=== PATIENT | female | born 1950 | race Caucasian/White ===

== ENCOUNTER → 2017-08-22 | Outpatient (CLI) | payer MEDICARE, OTHER ==
[~2017-08-22] MED LIST: ASPI325 PO; ASPI325B; CYCL10; CYCL10 PO; ESTR.05TPB; FENO145 PO; GABA100 PO; HYDMOR2 PO; HYDPAM50; LATANOPROST2.5 ML OP; LEVSOD50 PO; LEVSOD88 PO; METO100ER; METO100ER PO; METO50ER PO; OXYACE5T PO; OXYC1TAB11; Omeprazole20 M1 PO; PAIN MED; PRAV20; PROACE100; PROG100; Percocet 10-321 EACH PO; Prinivil10 MG PO; RANI150 PO; Roxicodone5 MG PO; TIMOPTIC 0.5%1 EACH BOTHEYES; VALS80
[2017-08-22 12:55] LABS: Source, Urine Clean Catch
[2017-08-22 13:56] LABS: Appearance, Urine Clear (Clear); Bilirubin, Urine Neg (Neg); Blood, Urine 2+ (Neg); Glucose Qualitative, Urine Neg (Neg); Ketones, Urine Neg (Neg); Leukocyte Esterase, Urine 3+ (Neg); Nitrite, Urine Pos (Neg); Protein, Urine Neg (Neg); Urobilinogen, Urine NORM (Normal); pH, Urine 6.5 (5.0-8.0)
[2017-08-22 14:21] LABS: Color, Urine Yellow (P-Yellow)
[2017-08-22 14:22] LABS: White Blood Cells, Urine 25-50 /hpf (0-5)
[2017-08-22 14:23] LABS: Bacteria Mod /hpf; Squamous Epithelial Cells Few /hpf (Few)
== END | disposition home or self-care (01) ==
LOC: LAB SRC 11:45
PROVIDERS: Family Medicine
DX: N39.0 Urinary tract infection, site not specified (principal)
CPT/HCPCS: 81001; 87086

== ENCOUNTER → 2017-10-24 | Outpatient (CLI) | payer MEDICARE, OTHER ==
[2017-10-24 17:00] LABS: Source, Urine Clean Catch
[2017-10-24 17:06] LABS: Appearance, Urine Clear (Clear); Bilirubin, Urine Neg (Neg); Blood, Urine 1+ (Neg); Color, Urine Yellow (P-Yellow); Glucose Qualitative, Urine Neg (Neg); Ketones, Urine Neg (Neg); Leukocyte Esterase, Urine Neg (Neg); Nitrite, Urine Neg (Neg); Protein, Urine Neg (Neg); Urobilinogen, Urine NORM (Normal)
[2017-10-24 17:58] LABS: Bacteria Few /hpf; Squamous Epithelial Cells Few /hpf (Few)
== END | disposition home or self-care (01) ==
LOC: LAB 16:00
PROVIDERS: Family Medicine
DX: N39.0 Urinary tract infection, site not specified (principal)
CPT/HCPCS: 81001

== ENCOUNTER 2019-01-14 04:39 | Inpatient (IN) | payer OTHER ==
[~2019-01-14] VITALS: Ht 147.3 cm; Wt 60.9 kg
[~2019-01-14 04:39] MED LIST changes: -ASPI325 PO; +Aspirin EC81 MG PO; +LEVSOD100 PO; -LEVSOD88 PO
[2019-01-14 04:55] LABS: BASOPHILS ABSOLUTE AUTO 0.05 K/mm3 (0.00-0.23); BASOPHILS PERCENT AUTO 1 % (0-2); EOSINOPHILS ABSOLUTE AUTO 0.25 K/mm3 (0.00-0.68); EOSINOPHILS PERCENT AUTO 3 % (0-6); Hematocrit 40.4 % (33.0-51.0); Hemoglobin 13.1 g/dL (11.5-16.0); IMMATURE GRAN ABSOLUTE AUTO 0.04 K/mm3 (0.00-0.10); IMMATURE GRAN PERCENT AUTO 1 % (0-1); LYMPHOCYTES ABSOLUTE AUTO 4.17 K/mm3 (0.84-5.20); LYMPHOCYTES PERCENT AUTO 51 % (21-46); MONOCYTES ABSOLUTE AUTO 0.65 K/mm3 (0.16-1.47); MONOCYTES PERCENT AUTO 8 % (4-13); Mean Corpuscular HGB 30.3 pg (26.0-34.0); Mean Corpuscular HGB Conc 32.4 g/dL (31.5-36.5); Mean Corpuscular Volume 93 fL (80-100); Mean Platelet Volume 10.5 fL (9.1-12.4); NEUTROPHILS ABSOLUTE AUTO 2.98 K/mm3 (1.96-9.15); NEUTROPHILS PERCENT AUTO 37 % (41-73); Platelet Count 301 K/mm3 (150-400); RDW Coefficient Variation 14.5 % (11.7-14.2); RDW Standard Deviation 50.1 fL (35.1-46.3); Red Blood Cell Count 4.33 M/mm3 (3.80-5.20); White Blood Cell Count 8.14 K/mm3 (4.00-11.30)
[2019-01-14 05:17] LABS: Alanine Aminotransfer (ALT/SGP 21 U/L (12-78); Albumin, Blood 3.3 g/dL (3.4-5.0); Albumin/Globulin Ratio 0.9 (0.8-1.8); Anion Gap 7 mmol/L (6-16); Aspartate Aminotrans (AST/SGOT 19 U/L (12-37); Bilirubin, Total 0.2 mg/dL (0.1-1.0); Blood Urea Nitrogen 31 mg/dL (8-24); Bun/Creatinine Ratio 40.5 (12.0-20.0); CO2, Blood 28 mmol/L (21-32); Calcium, Blood 9.1 mg/dL (8.5-10.1); Chloride, Blood 105 mmol/L (98-108); Creatinine, Blood 0.77 mg/dL (0.40-1.00); Globulin, Blood 3.7 g/dL (2.2-4.0); Glomerular Filtration Rate >60 (60-); Glucose, Blood 112 mg/dL (70-99); Potassium, Blood 4.3 mmol/L (3.5-5.5); Sodium, Blood 140 mmol/L (136-145); Troponin I 0.161 ng/mL (0.000-0.040)
[2019-01-14 05:26] LABS: Alk Phos 2144 U/L (50-136)
[2019-01-14 12:12] LABS: International Normalized Ratio 0.97; Prothrombin Time Results 10.3 Sec (9.7-11.5)
== END 2019-01-16 14:21 | disposition short-term general hospital (02) | DRG 282 ==
LOC: ER 04:39 → MEDS 04:40 → PCU 01-15 07:59
PROVIDERS: Emergency Medicine; Internal Medicine; ADMIT Hospitalist
PROC: B2161ZZ Fluoroscopy of Right and Left Heart using Low Osmolar Contrast (ICD-10-PCS; principal; 2019-01-15)
PROC: B241ZZ3 Ultrasonography of Multiple Coronary Arteries, Intravascular (ICD-10-PCS; 2019-01-15)
PROC: 4A023N7 Measurement of Cardiac Sampling and Pressure, Left Heart, Percutaneous Approach (ICD-10-PCS; 2019-01-15)
PROC: B41F1ZZ Fluoroscopy of Right Lower Extremity Arteries using Low Osmolar Contrast (ICD-10-PCS; 2019-01-15)
DX: I21.4 Non-ST elevation (NSTEMI) myocardial infarction (principal); I10 Essential (primary) hypertension; E78.5 Hyperlipidemia, unspecified; G89.29 Other chronic pain; Z74.01 Bed confinement status; I25.2 Old myocardial infarction; Z95.5 Presence of coronary angioplasty implant and graft; E83.89 Other disorders of mineral metabolism; E83.39 Other disorders of phosphorus metabolism
CPT/HCPCS: 36415; 71045; 80053; 84484; 85025; 85347; 85610; 85730; 92978; 92979; 93005; 93010; 93306; 93458; 96372; 96374; 96376; 99152; 99153; 99285-25; C1753; C1760; C1769; C1887; G0378; J1644; J1650; J2250; J2405; J3010; J7030; Q9967

== ENCOUNTER 2019-01-27 19:24 | Emergency (ER) | payer OTHER ==
[~2019-01-27] VITALS: Ht 147.3 cm; Wt 52.2 kg
[2019-01-27 20:15] LABS: BASOPHILS ABSOLUTE AUTO 0.05 K/mm3 (0.00-0.23); BASOPHILS PERCENT AUTO 1 % (0-2); EOSINOPHILS ABSOLUTE AUTO 0.27 K/mm3 (0.00-0.68); EOSINOPHILS PERCENT AUTO 4 % (0-6); Hematocrit 38.2 % (33.0-51.0); Hemoglobin 12.6 g/dL (11.5-16.0); IMMATURE GRAN ABSOLUTE AUTO 0.09 K/mm3 (0.00-0.10); IMMATURE GRAN PERCENT AUTO 1 % (0-1); LYMPHOCYTES ABSOLUTE AUTO 2.79 K/mm3 (0.84-5.20); LYMPHOCYTES PERCENT AUTO 41 % (21-46); MONOCYTES ABSOLUTE AUTO 0.67 K/mm3 (0.16-1.47); MONOCYTES PERCENT AUTO 10 % (4-13); Mean Corpuscular Volume 94 fL (80-100); Mean Platelet Volume 10.1 fL (9.1-12.4); NEUTROPHILS ABSOLUTE AUTO 2.94 K/mm3 (1.96-9.15); NEUTROPHILS PERCENT AUTO 43 % (41-73); Platelet Count 417 K/mm3 (150-400); RDW Coefficient Variation 15.3 % (11.7-14.2); RDW Standard Deviation 52.4 fL (35.1-46.3); Red Blood Cell Count 4.07 M/mm3 (3.80-5.20); White Blood Cell Count 6.81 K/mm3 (4.00-11.30)
[2019-01-27 20:38] LABS: Alanine Aminotransfer (ALT/SGP 34 U/L (12-78); Albumin, Blood 3.4 g/dL (3.4-5.0); Albumin/Globulin Ratio 0.7 (0.8-1.8); Alk Phos 377 U/L (50-136); Anion Gap 8 mmol/L (6-16); Aspartate Aminotrans (AST/SGOT 29 U/L (12-37); Bilirubin, Total 0.4 mg/dL (0.1-1.0); Blood Urea Nitrogen 15 mg/dL (8-24); Bun/Creatinine Ratio 19.7 (12.0-20.0); CO2, Blood 24 mmol/L (21-32); Calcium, Blood 9.8 mg/dL (8.5-10.1); Chloride, Blood 104 mmol/L (98-108); Creatinine, Blood 0.76 mg/dL (0.40-1.00); Globulin, Blood 4.6 g/dL (2.2-4.0); Glomerular Filtration Rate >60 (60-); Glucose, Blood 130 mg/dL (70-99); Potassium, Blood 3.8 mmol/L (3.5-5.5); Sodium, Blood 136 mmol/L (136-145); Troponin I 0.036 ng/mL (0.000-0.040)
== END 2019-01-28 00:11 | disposition home or self-care (01) ==
LOC: ER 19:24
PROVIDERS: Emergency Medicine
DX: I95.9 Hypotension, unspecified (principal); Z79.899 Other long term (current) drug therapy; Z79.82 Long term (current) use of aspirin; I10 Essential (primary) hypertension; Z87.891 Personal history of nicotine dependence
CPT/HCPCS: 71045; 71260; 80053; 83605; 83880; 84484; 85025; 93005; 93010; 99285-25; Q9967

== ENCOUNTER 2019-03-26 23:11 | Emergency (ER) | payer OTHER ==
[~2019-03-26] VITALS: Ht 147.3 cm; Wt 49.9 kg
[2019-03-27 00:14] LABS: BASOPHILS ABSOLUTE AUTO 0.03 K/mm3 (0.00-0.23); BASOPHILS PERCENT AUTO 0 % (0-2); EOSINOPHILS ABSOLUTE AUTO 0.31 K/mm3 (0.00-0.68); EOSINOPHILS PERCENT AUTO 3 % (0-6); Hematocrit 40.6 % (33.0-51.0); Hemoglobin 13.2 g/dL (11.5-16.0); IMMATURE GRAN ABSOLUTE AUTO 0.03 K/mm3 (0.00-0.10); IMMATURE GRAN PERCENT AUTO 0 % (0-1); LYMPHOCYTES ABSOLUTE AUTO 3.68 K/mm3 (0.84-5.20); LYMPHOCYTES PERCENT AUTO 41 % (21-46); MONOCYTES ABSOLUTE AUTO 0.83 K/mm3 (0.16-1.47); MONOCYTES PERCENT AUTO 9 % (4-13); Mean Corpuscular HGB 29.3 pg (26.0-34.0); Mean Corpuscular HGB Conc 32.5 g/dL (31.5-36.5); Mean Corpuscular Volume 90 fL (80-100); Mean Platelet Volume 10.3 fL (9.1-12.4); NEUTROPHILS ABSOLUTE AUTO 4.13 K/mm3 (1.96-9.15); NEUTROPHILS PERCENT AUTO 46 % (41-73); Platelet Count 307 K/mm3 (150-400); RDW Coefficient Variation 13.5 % (11.7-14.2); RDW Standard Deviation 45.1 fL (35.1-46.3); Red Blood Cell Count 4.51 M/mm3 (3.80-5.20); White Blood Cell Count 9.01 K/mm3 (4.00-11.30)
[2019-03-27 00:37] LABS: Alanine Aminotransfer (ALT/SGP 27 U/L (12-78); Albumin, Blood 3.3 g/dL (3.4-5.0); Albumin/Globulin Ratio 0.8 (0.8-1.8); Anion Gap 7 mmol/L (6-16); Aspartate Aminotrans (AST/SGOT 22 U/L (12-37); Bilirubin, Total 0.2 mg/dL (0.1-1.0); Blood Urea Nitrogen 20 mg/dL (8-24); Bun/Creatinine Ratio 35.6 (12.0-20.0); CO2, Blood 25 mmol/L (21-32); Calcium, Blood 9.2 mg/dL (8.5-10.1); Chloride, Blood 106 mmol/L (98-108); Creatinine, Blood 0.56 mg/dL (0.40-1.00); Globulin, Blood 4.1 g/dL (2.2-4.0); Glomerular Filtration Rate >60 (60-); Glucose, Blood 109 mg/dL (70-99); Potassium, Blood 3.9 mmol/L (3.5-5.5); Sodium, Blood 138 mmol/L (136-145); Total Protein, Blood 7.4 g/dL (6.4-8.2); Troponin I <0.015 ng/mL (0.000-0.040)
[2019-03-27 00:46] LABS: Alk Phos 2170 U/L (50-136)
== END 2019-03-27 01:31 | disposition home or self-care (01) ==
LOC: ER 23:11
PROVIDERS: Emergency Medicine
DX: R06.02 Shortness of breath (principal); Z79.899 Other long term (current) drug therapy; Z79.82 Long term (current) use of aspirin; Z79.891 Long term (current) use of opiate analgesic; I10 Essential (primary) hypertension; E03.9 Hypothyroidism, unspecified; Z87.891 Personal history of nicotine dependence
CPT/HCPCS: 36415; 71046; 80053; 84484; 85025; 93005; 93010; 99285-25

== ENCOUNTER 2019-03-30 17:08 | Inpatient (IN) | payer OTHER ==
[~2019-03-30] VITALS: Ht 147.3 cm; Wt 84.3 kg
[2019-03-30] MEDS ORDERED: OXYC1TAB11 PO (21:06)
[2019-03-30] MEDS ORDERED: CLOP75 PO (21:07)
[2019-03-30] MEDS ORDERED: NITR.4SL SL (21:07)
[2019-03-30] MEDS ORDERED: ATOR40TA PO (21:07)
[2019-03-30] MEDS ORDERED: [UNRECOGNIZED DRUG - OTHER] SC (21:08)
[2019-03-30] MEDS ORDERED: [UNRECOGNIZED DRUG - OTHER] SC (21:09)
[2019-03-30 21:49] LABS: BASOPHILS ABSOLUTE AUTO 0.04 K/mm3 (0.00-0.23); BASOPHILS PERCENT AUTO 0 % (0-2); EOSINOPHILS ABSOLUTE AUTO 0.05 K/mm3 (0.00-0.68); EOSINOPHILS PERCENT AUTO 0 % (0-6); Hematocrit 37.1 % (33.0-51.0); IMMATURE GRAN ABSOLUTE AUTO 0.07 K/mm3 (0.00-0.10); IMMATURE GRAN PERCENT AUTO 1 % (0-1); LYMPHOCYTES ABSOLUTE AUTO 2.49 K/mm3 (0.84-5.20); LYMPHOCYTES PERCENT AUTO 16 % (21-46); MONOCYTES ABSOLUTE AUTO 0.94 K/mm3 (0.16-1.47); MONOCYTES PERCENT AUTO 6 % (4-13); Mean Corpuscular HGB 29.6 pg (26.0-34.0); Mean Corpuscular HGB Conc 32.3 g/dL (31.5-36.5); Mean Corpuscular Volume 91 fL (80-100); Mean Platelet Volume 10.5 fL (9.1-12.4); NEUTROPHILS ABSOLUTE AUTO 11.58 K/mm3 (1.96-9.15); NEUTROPHILS PERCENT AUTO 76 % (41-73); Platelet Count 289 K/mm3 (150-400); RDW Coefficient Variation 13.4 % (11.7-14.2); RDW Standard Deviation 46.2 fL (35.1-46.3); Red Blood Cell Count 4.06 M/mm3 (3.80-5.20); White Blood Cell Count 15.17 K/mm3 (4.00-11.30)
[2019-03-30 22:10] LABS: Alanine Aminotransfer (ALT/SGP 26 U/L (12-78); Albumin, Blood 3.3 g/dL (3.4-5.0); Albumin/Globulin Ratio 0.9 (0.8-1.8); Anion Gap 10 mmol/L (6-16); Aspartate Aminotrans (AST/SGOT 25 U/L (12-37); Bilirubin, Total 0.3 mg/dL (0.1-1.0); Blood Urea Nitrogen 18 mg/dL (8-24); Bun/Creatinine Ratio 40.9 (12.0-20.0); CO2, Blood 26 mmol/L (21-32); Calcium, Blood 8.7 mg/dL (8.5-10.1); Chloride, Blood 101 mmol/L (98-108); Creatinine, Blood 0.44 mg/dL (0.40-1.00); Globulin, Blood 3.6 g/dL (2.2-4.0); Glomerular Filtration Rate >60 (60-); Glucose, Blood 126 mg/dL (70-99); Magnesium, Blood 1.8 mg/dL (1.6-2.4); Potassium, Blood 3.9 mmol/L (3.5-5.5); Sodium, Blood 137 mmol/L (136-145); Total Protein, Blood 6.9 g/dL (6.4-8.2)
[2019-03-30 22:17] LABS: Thyroid Stimulating Hormone 0.051 uIU/mL (0.360-4.800)
[2019-03-30 22:20] LABS: Alk Phos 2025 U/L (50-136)
--- NOTE | 2019-03-31 01:23 | NUR ---
STRAIGHT CATH PER ORDERS TO OBTAIN UA. 350cc OUT. ATTENDS CHANGED AT THIS TIME. PT DENIES FURTHER NEEDS. CALL LIGHT IN REACH.
[2019-03-31 01:24] LABS: Source, Urine Catheter
[2019-03-31 01:27] LABS: Bilirubin, Urine Neg (Neg); Blood, Urine 3+ (Neg); Glucose Qualitative, Urine Neg (Neg); Ketones, Urine Neg (Neg); Leukocyte Esterase, Urine 3+ (Neg); Nitrite, Urine Neg (Neg); Protein, Urine 2+ (Neg); Specific Gravity, Urine 1.015 (1.003-1.022); Urobilinogen, Urine NORM (Normal)
[2019-03-31 01:34] LABS: Appearance, Urine Hazy (Clear); Color, Urine Yellow (P-Yellow)
[2019-03-31 01:35] LABS: Bacteria Mod /hpf; Hyaline Casts 0-2 /lpf (0-2); Red Blood Cells, Urine 0-2 /hpf (0-2); Squamous Epithelial Cells Rare /hpf (Few); White Blood Cells, Urine TNTC /hpf (0-5)
[2019-03-31 02:31] LABS: BASOPHILS ABSOLUTE AUTO 0.04 K/mm3 (0.00-0.23); BASOPHILS PERCENT AUTO 0 % (0-2); EOSINOPHILS ABSOLUTE AUTO 0.09 K/mm3 (0.00-0.68); EOSINOPHILS PERCENT AUTO 1 % (0-6); Hematocrit 33.6 % (33.0-51.0); IMMATURE GRAN ABSOLUTE AUTO 0.08 K/mm3 (0.00-0.10); IMMATURE GRAN PERCENT AUTO 1 % (0-1); LYMPHOCYTES ABSOLUTE AUTO 3.36 K/mm3 (0.84-5.20); LYMPHOCYTES PERCENT AUTO 26 % (21-46); MONOCYTES ABSOLUTE AUTO 1.01 K/mm3 (0.16-1.47); MONOCYTES PERCENT AUTO 8 % (4-13); Mean Corpuscular HGB 29.7 pg (26.0-34.0); Mean Corpuscular HGB Conc 32.7 g/dL (31.5-36.5); Mean Corpuscular Volume 91 fL (80-100); Mean Platelet Volume 10.2 fL (9.1-12.4); NEUTROPHILS ABSOLUTE AUTO 8.18 K/mm3 (1.96-9.15); NEUTROPHILS PERCENT AUTO 64 % (41-73); Platelet Count 259 K/mm3 (150-400); RDW Coefficient Variation 13.4 % (11.7-14.2); RDW Standard Deviation 45.5 fL (35.1-46.3); White Blood Cell Count 12.76 K/mm3 (4.00-11.30)
[2019-03-31 02:48] LABS: Anion Gap 9 mmol/L (6-16); Blood Urea Nitrogen 17 mg/dL (8-24); CO2, Blood 26 mmol/L (21-32); Calcium, Blood 8.7 mg/dL (8.5-10.1); Chloride, Blood 100 mmol/L (98-108); Creatinine, Blood 0.41 mg/dL (0.40-1.00); Glomerular Filtration Rate >60 (60-); Glucose, Blood 115 mg/dL (70-99); Potassium, Blood 3.8 mmol/L (3.5-5.5); Sodium, Blood 135 mmol/L (136-145)
--- NOTE | 2019-03-31 05:10 | NUR ---
SHIFT SUMMARY PT NEW ADMIT THIS SHIFT. AAOX4. NPO THIS AM FOR ORTHOPEDIC CONSULT. DISCOMFORT R/T RIGHT HUMERUS FX CONTROLLED WITH 0.5MG IV DILAUDID X1 THIS SHIFT. NO NAUSEA/EMESIS. PELON WRAP WITH SPLINT TO RUE C/D/I. PULSES PALPABLE, DENIES N/T, BRISK CAP REFILL. 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 PT INCONTINENT IN ATTENDS. PT ORIENTED TO CALL LIGHT + USE. RESTING AT THIS TIME WITH CALL LIGHT IN REACH.
--- NOTE | 2019-03-31 12:11 | NUR ---
PT CONCERNS PT REPORTS HAVING CONCERNS THAT SHE IS NOT A SURGICAL CANDIDATE PER DR. ACOSTA. PT AND FAMILY ARE REQUESTING THAT DR. ACOSTA COME TALK WITH THEM AGAIN. THEY ARE EXPRESSING THAT THEY WOULD LIKE A SECOND OPINION OR TRANSFERRED TO [facility]. FAMILY IS ALSO CONCERNED THAT THEY WILL BE UNABLE TO CARE FOR THE PATIENT AT HOME. DR. ACOSTA NOTIFIED THAT FAMILY IS IN THE PATIENT'S ROOM AND WAITING TO TALK TO HER. WILL CONTINUE TO MONITOR.
--- NOTE | 2019-03-31 16:04 | NUR ---
PT AND FAMILY ARE ANXIOUS ABOUT PT'S PLAN OF CARE. DR. ACOSTA DISCUSSED CURRENT TREATMENT AND AGREED TO GET A SECOND OPINION FROM [facility]. WILL CONTINUE TO REASSURE/EDUCATE PT AND FAMILY ABOUT OPTIONS NEEDED. ENCOURAGED PT'S SON(CAREGIVER), TO BE AVALIABLE TO WORK WITH PHYSICAL THERAPY SO THAT THEY CAN COME UP WITH A METHOD TO TRANSFER PT FROM BED TO WHEELCHAIR. PT'S SON AGREED. WILL CONTINUE TO MONITOR.
--- NOTE | 2019-03-31 18:30 | NUR ---
SHIFT SUMMARY PAIN HAS BEEN MANAGED WITH PO PAIN MEDICATION THIS SHIFT. PT HAS BEEN ABLE TO REPOSITION IN BED WITH ASSISTANCE. SHE WAS UNABLE TO SIT AT THE EDGE OF THE BED OR TRANSFER R/T PAIN. FAMILY AND PT HAVE REMAINED CONCERNED ABOUT HOME CARE IF PT DISCHARGES. PT REQUESTED TRANFER TO [facility]; DR. ACOSTA IS AWARE. WILL CONTINUE TO MONITOR PATIENT UNTIL REPORT TO ONCOMING RN.
[2019-04-01 03:39] LABS: BASOPHILS ABSOLUTE AUTO 0.02 K/mm3 (0.00-0.23); BASOPHILS PERCENT AUTO 0 % (0-2); EOSINOPHILS ABSOLUTE AUTO 0.35 K/mm3 (0.00-0.68); EOSINOPHILS PERCENT AUTO 5 % (0-6); Hematocrit 25.9 % (33.0-51.0); Hemoglobin 8.3 g/dL (11.5-16.0); IMMATURE GRAN ABSOLUTE AUTO 0.03 K/mm3 (0.00-0.10); IMMATURE GRAN PERCENT AUTO 0 % (0-1); LYMPHOCYTES ABSOLUTE AUTO 3.39 K/mm3 (0.84-5.20); LYMPHOCYTES PERCENT AUTO 45 % (21-46); MONOCYTES PERCENT AUTO 11 % (4-13); Mean Corpuscular Volume 91 fL (80-100); Mean Platelet Volume 10.2 fL (9.1-12.4); NEUTROPHILS ABSOLUTE AUTO 2.93 K/mm3 (1.96-9.15); NEUTROPHILS PERCENT AUTO 39 % (41-73); Platelet Count 205 K/mm3 (150-400); RDW Coefficient Variation 13.6 % (11.7-14.2); RDW Standard Deviation 45.1 fL (35.1-46.3); Red Blood Cell Count 2.86 M/mm3 (3.80-5.20); White Blood Cell Count 7.52 K/mm3 (4.00-11.30)
[2019-04-01 04:03] LABS: Anion Gap 6 mmol/L (6-16); Blood Urea Nitrogen 14 mg/dL (8-24); Bun/Creatinine Ratio 29.8 (12.0-20.0); CO2, Blood 25 mmol/L (21-32); Calcium, Blood 7.9 mg/dL (8.5-10.1); Chloride, Blood 114 mmol/L (98-108); Creatinine, Blood 0.47 mg/dL (0.40-1.00); Glomerular Filtration Rate >60 (60-); Glucose, Blood 99 mg/dL (70-99); Potassium, Blood 3.9 mmol/L (3.5-5.5)
[2019-04-01 04:06] LABS: Sodium, Blood 145 mmol/L (136-145)
--- NOTE | 2019-04-01 06:43 | NUR ---
SUMMARY: NON SX RIGHT ARM FX FOLLOWED BY HOSPITALIST AND DR. ACOSTA. VSS, AFEBRILE, INCONTINENT 2 TIMES AND USING BEDPAN WITH 2 ASSIST TO REPOSITION IN BED. PAIN WELL CONTROLLED WITH 1 TAB PERCOCET Q4 HOURS AND 0.5MF IV DILAUDID X2 THIS SHIFT. SON BROUGHT HOME MED AND SQ ADMINISTERED AT BEDSIDE. AWAIT DR. ACOSTA F/U REGARDING [facility] TRANSFER OF CARE FOR NON SURGICAL FX.
--- NOTE | 2019-04-01 16:05 | NUR ---
SHIFT SUMMARY PT IN FOR R ARM FX. AAOX4, VSS. RECCOMENDED NO SURGICAL TREATMENT AT THIS TIME. ORDER FOR BORJAS BRACE FROM DR. ACOSTA, AWAITING FITTING. PT IN BED WITH SLING ON ARM FOR SUPPORT. PT STATES SOME RELIEF. NEUROMUSCULAR CHECKS GOOD PATIENT HAS MOVEMENT AND NO NUMBNESS/TINGLING REPORTED IN EFFECTED EXTREMITY. MEDICATED FOR PAIN PER EMAR DILAUDID 0.5 X 3 AND OXYCODONE 10MG X2. PT HAS BEEN STABLE AT PAIN RATED 8/10. PT/OT WORKED WITH PATIENT TO CHAIR VIA SLIDEBOARD WITH SON. PLAN IS TO DISCHARGE HOME WITH HOMEHEALTH ONCE PAIN MANAGED AND SAFE DISCHARGE PLANNING WITH SON.
--- NOTE | 2019-04-01 16:33 | NUR ---
Met with patient to review her needs and symptoms. Pt states more recent headaches, her pain is usually around an 8/10 she states it feels like a deep ache in the bone or a tooth ache. she denies muscle spasms or weakness. no ringining in her ears or dizziness, she has chronic mild nausea. denies constipation or loose stools. Sleep is difficult she can fall asleep but it hard at times to sleep well or stay asleep. pt has a binder with all the history of her care she has recieved most of it at a [facility] in [place]. She has some a will, POA and advance directive.will ask son to bring in AD. Pt is expressing significant stress and grief and her right arm being splinted. She has been slowly looing function over many years. She fears loosing function of her right arm. Pt crying she will not be able to write and cant do crafts with her grandchildren. This is a great loss. She expresses stress at having had so much medical care and many doctors. She feels the experimenal drug trial is helping. She states the cdoctor she had at [facility] that was a great loss. She feel her best choice is a new ortho doctor that knows her disease. She states her son take great care of her but getting into a care and moving outside of the home is very very difficult. She has seen a pain specialist and had a stimulator and fentanyl patch. She is not open to any new medications. We reviewed non pharmacological care. She is of [employer] [place] and feels that her thought process in not right when she has a break and is trying to work on improving thought. We reviewed diversion she does not have a tablet of phone. Gave her some talk text strategies that could maintain some of her function and diversion. She wanted lavender and spearmint chapstick for nausea and provided her with number to our office for follow up assistance. She would like to see if her insurance would pay for gurney transport to [facility] when she goes for an appointment. We reviewed inpatient versus outpatient care. We reviewed infections risks and care needs and using heat and ice. will follow up with patient.
--- NOTE | 2019-04-01 18:07 | NUR ---
BRACE FITTING AT 1730. PATIENT PREMEDICATED FOR PAIN. TOLERATING WELL.
[2019-04-03 06:54] LABS: BASOPHILS ABSOLUTE AUTO 0.04 K/mm3 (0.00-0.23); BASOPHILS PERCENT AUTO 1 % (0-2); EOSINOPHILS ABSOLUTE AUTO 0.52 K/mm3 (0.00-0.68); EOSINOPHILS PERCENT AUTO 7 % (0-6); Hematocrit 27.2 % (33.0-51.0); Hemoglobin 8.7 g/dL (11.5-16.0); IMMATURE GRAN ABSOLUTE AUTO 0.03 K/mm3 (0.00-0.10); IMMATURE GRAN PERCENT AUTO 0 % (0-1); LYMPHOCYTES PERCENT AUTO 43 % (21-46); MONOCYTES ABSOLUTE AUTO 0.54 K/mm3 (0.16-1.47); MONOCYTES PERCENT AUTO 7 % (4-13); Mean Corpuscular HGB 29.1 pg (26.0-34.0); Mean Corpuscular Volume 91 fL (80-100); Mean Platelet Volume 10.6 fL (9.1-12.4); NEUTROPHILS ABSOLUTE AUTO 3.04 K/mm3 (1.96-9.15); NEUTROPHILS PERCENT AUTO 42 % (41-73); Platelet Count 229 K/mm3 (150-400); RDW Coefficient Variation 13.7 % (11.7-14.2); RDW Standard Deviation 45.4 fL (35.1-46.3); Red Blood Cell Count 2.99 M/mm3 (3.80-5.20); White Blood Cell Count 7.27 K/mm3 (4.00-11.30)
[2019-04-03 07:07] LABS: Anion Gap 6 mmol/L (6-16); Blood Urea Nitrogen 11 mg/dL (8-24); Bun/Creatinine Ratio 23.3 (12.0-20.0); CO2, Blood 29 mmol/L (21-32); Calcium, Blood 8.5 mg/dL (8.5-10.1); Chloride, Blood 108 mmol/L (98-108); Creatinine, Blood 0.47 mg/dL (0.40-1.00); Glomerular Filtration Rate >60 (60-); Glucose, Blood 91 mg/dL (70-99); Potassium, Blood 3.9 mmol/L (3.5-5.5); Sodium, Blood 143 mmol/L (136-145)
--- NOTE | 2019-04-03 09:46 | NUR ---
PATIENT ADVOCATE IN ROOM TALKING WITH PT PER PT REQ.
--- NOTE | 2019-04-03 11:46 | NUR ---
THUY FROM FIBERGLASS TUBE MOLDER IN ROOM.
--- NOTE | 2019-04-03 13:34 | NUR ---
DISCUSSED PT'S STATUS WITH DR MACIEL EARLIER TODAY. DISCUSSED PT'S STATUS WITH DR SUSANA ACOSTA.
--- NOTE | 2019-04-03 15:42 | NUR ---
SHIFT SUMMARY PT A&OX4, VSS, RUE FX IN BRACE & SLING, ELEVATED ON PILLOW, DENIES N&T, WIGGLES FINGERS, CAP REFILL WNL. PAIN MANAGED WITH 10 MG PERC X2 AND 0.5 DIL X2. MARLYN PO, DENIES N&V, NEEDS MEAL ASSISTANCE. VOIDING IN BEDPAN/INCONTINENT IN ATTENDS. BEDREST. WORKED WITH OT, WORKED WITH PT WITH SON BEDSIDE. WCTM & TX PER EMAR UNTIL REPORT GIVEN TO ONCOMING TARYN RN.
--- NOTE | 2019-04-03 16:31 | NUR ---
PT RECENTLY TO IMAGING BY CART. PT MOVED WITH MULT ASSIST AND SLIDER SHEET.
--- NOTE | 2019-04-03 16:55 | NUR ---
PT RECENTLY BACK FROM IMAGING, ASSISTED WITH ADL'S PRN.
--- NOTE | 2019-04-03 19:02 | NUR ---
SHIFT SUMMARY PT EATING AND DRINKING. PT VOIDING. PT BEEN ASSISTED WITH ADL'S PRN. PT WAS TO IMAGING TODAY. ABBY QUAN IN TO SEE PT TODAY. [facility] CAME TO SEE PT TODAY PER PT REQ SHE REQUESTED HIM TO RE-ADJUST/REPOSITION BRACE. PT REFUSED RN TO ASSIST WITH BRACE.
[2019-04-04 04:19] LABS: Hematocrit 28.3 % (33.0-51.0); Hemoglobin 8.9 g/dL (11.5-16.0)
--- NOTE | 2019-04-04 05:01 | NUR ---
PATIENT HAS BEEN MORE ACTIVE IN BED GETTING SITUATED INTO A POSITION OF COMFORT. HER RT ARM IS IN A HARD BRACE AND A SLING. SHE DOES HAVE SOME MILD DEPENDENT EDEMA IN HER RT HAND. wE SPOKE ABOUT THE PROSPECT OF NOT BEING ABLE TO GO HOME WHEN SHE DISCHARGES. sHE UNDERSTANDS THAT THE DYNAMICS OF HOW SHE AND HER SON PERFORMED THE MOVEMENT WOULD BE NEAR TO IMPOSSIBLE WITH HER BROKEN ARM.
--- NOTE | 2019-04-04 09:10 | NUR ---
DR MARVIN HERE TO SEE PT.
--- NOTE | 2019-04-04 18:08 | NUR ---
SHIFT SUMMARY: PT EATING AND DRINKING, VOIDING. PT REPORTS HAVING BM TODAY. PT BEEN ASSISTED WITH ADL'S PRN, MED FOR PAIN PRN. PT USING CALL LIGHT APPR. FAMILY/FRIENDS BEEN TO SEE PT.
--- NOTE | 2019-04-05 05:30 | NUR ---
SUMMARY NO ACUTE CHANGES NOTED. PAIN MANAGED PER EMAR. PT CALLS FOR ASSISTANCE PRN. RIGHT ARM REMAINS IN BRACE. CIRC WNL. CALL LIGHT IN REACH
--- NOTE | 2019-04-05 14:23 | NUR ---
PT UNABLE TO CONTACT SON R/T WORKING WITH PHYSICAL THERAPY. PHYSICAL THERAPY AWAITING SON TO WORK WITH PATIENT.
--- NOTE | 2019-04-05 15:32 | NUR ---
SHIFT SUMMARY PAIN HAS BEEN MANAGED WITH PO PAIN MEDICATION. NO ACUTE CHANGES TO REPORT. VSS. PT STILL UNWILLING TO WORK WITH PT UNLESS HER SON IS HERE. HER SON WAS UNAVALIABLE TO WORK WITH PHYSICAL THERAPY AND THE PT TODAY; PT DECLINED THERAPY. REPORT GIVEN TO MEL TOMAS.
--- NOTE | 2019-04-05 16:15 | NUR ---
PT ALERT AND ORIENTED, VSS. REPOSITIONING SELF IN BED, EATING WITH MINIMAL ASSISTANCE. CALLS APPROPRIATLY. PAIN MANAGED PER EMAR. PLAN TO DISCHARGE TO HOME ONCE EQUIPMENT IS AVAILABLE. PT UNABLE TO WORK WITH PATIENT DURING SHIFT.
--- NOTE | 2019-04-06 07:27 | NUR ---
SHIFT SUMMARY HAS HAD A GOOD SHIFT. MEDICATED FOR PAIN TO RIGHT ARM X2 THIS SHIFT. HAS GOTTEN ON AND OFF THE BEDPAN WITH MINIMAL ISSUES OR ASSISTANCE. DENIES FURTHER NEEDS AT THIS TIME, SAFETY MEASURES IN PLACE. HAND OFF GIVEN TO GENOVEVA WHITNEY USING SBAR.
--- NOTE | 2019-04-06 16:21 | NUR ---
PT IN BED DURING SHIFT. VSS. MEDICATED FOR PAIN X1 DURING SHIFT. ENCOURAGED PATIENT TO CALL SOON SHE FELT AN INCREASE IN PAIN. PAIN WAS STEADY AND DULL DURING SHIFT. REPOSITIONS SELF FOR COMFORT. BRACE IS IN PLACE ON RIGHT ARM DID NOT SEE PHYSICAL THERAPY TODAY. PLAN IS TO DISCHARGE HOME WITH SON ONCE EQUIPMENT IS AVAILABLE FOR HOME.
--- NOTE | 2019-04-07 05:04 | NUR ---
SHIFT SUMMARY: NO ACUTE CHANGES OVERNIGHT. BRACE TO LEONOR IN PLACE. CAP REFILL WNL. WIGGLES FINGERS. DENIES N/T. PT IMMOBILE/BEDREST AT BASELINE. CONTRACTURES TO BUE AND BLE R/T CONGENITAL BONE DISEASE. PT PAINFUL T/O SHIFT. GIVEN TYLENOL ONCE AND 1 NORCO. USING BEDPAN PRN. VOIDING WELL. REPOSITIONING IN BED WITH 1 ASSIST. PLAN FOR POSSIBLE DISCHARGE HOME TODAY.
--- NOTE | 2019-04-07 17:29 | NUR ---
SHIFT SUMMARY CARE MANAGEMENT, PT ADVOCATE, AND BAGGAGE AGENT ALL HAVE BEEN IN TO SEE PT AND SON R/T DISCHARGE PLANNING. [facility] SET UP FOR PT. FOLLOW UP APPT WITH PCP SET UP FOR PT. PT TO F/U WITH [facility] AN OUTPATIENT. PROPER EQUIPMENT NEEDED INCLUDING W/C WITH REMOVABLE HANDLES AND SLIDER BOARD IN ROOM WITH PT TO TAKE HOME. IMMOBILIZER TO R ARM IN PLACE AND PT CONT TO VERB AN UNDERSTANDING OF NONWEIGHT BEARING. IV DC'D. PT EDUCATED ON AND RECEIVED PRINTED DC INSTRUCTIONS AND VERBALIZED AN UNDERSTANDING. ALL PERSONAL BELONGINGS BEING GATHERED BY PT AND SON. PER INSTITUTIONAL RESEARCH DIRECTOR, PT AND SON WANTED TO TRANSPORT PT HOME BY PRIVATE VEHICLE.
--- NOTE | 2019-04-07 17:52 | NUR ---
PT AND SON REFUSED ASSISTANCE WITH TRANSFERRING INTO THE W/C. SON TRANSFERRED PT INTO W/C SUCCESSFULLY. THIS RN OFFERED ASSISTANCE OUT TO VEHICLE AND SON REFUSED. PT DISCHARGED HOME AT THIS TIME AND LEFT WITH ALL EQUIPMENT AND PERSONAL BELONGINGS.
== END 2019-04-07 17:52 | disposition home health service (06) | DRG 563 ==
LOC: ER 17:08 → SURS 21:45
PROVIDERS: Emergency Medicine; Internal Medicine; Nurse Practitioner Acute Care; ADMIT Family Medicine
DX: S42.301A Unspecified fracture of shaft of humerus, right arm, initial encounter for closed fracture (principal); E55.0 Rickets, active; E83.31 Familial hypophosphatemia; E83.39 Other disorders of phosphorus metabolism; I10 Essential (primary) hypertension; E03.9 Hypothyroidism, unspecified; Z74.09 Other reduced mobility; I25.10 Atherosclerotic heart disease of native coronary artery without angina pectoris; M85.80 Other specified disorders of bone density and structure, unspecified site; E78.5 Hyperlipidemia, unspecified; K21.9 Gastro-esophageal reflux disease without esophagitis; Z95.5 Presence of coronary angioplasty implant and graft; Z87.891 Personal history of nicotine dependence; Z79.02 Long term (current) use of antithrombotics/antiplatelets; Z79.82 Long term (current) use of aspirin; Z79.899 Other long term (current) drug therapy
CPT/HCPCS: 29105; 36415; 71045; 73060; 73090; 80048; 80053; 81001; 83605; 83735; 84100; 84145; 84443; 85014; 85018; 85025; 87086; 93005; 93010; 94762; 96372-59; 96374-59; 96375-59; 97163; 97167; 97530; 97535; 99285-25; A9270; J0456; J0696; J1170; J3010; J3480; J7030; J7050

== ENCOUNTER 2020-02-05 10:46 | Day surgery (SDC) | payer OTHER ==
[~2020-02-05] VITALS: Ht 149.9 cm; Wt 49.8 kg
[~2020-02-05 10:46] MED LIST changes: +ATOR40TA PO; +CLOP75 PO; +NITR.4SL SL; +OXYCODONE-ACET1 EAC2 PO; +[UNRECOGNIZED DRUG - OTHER] SC; +[UNRECOGNIZED DRUG - OTHER] SC
[2020-02-11] MEDS ORDERED: [UNRECOGNIZED DRUG - OTHER] IV (15:17)
== END 2020-02-05 13:32 | disposition home or self-care (01) ==
LOC: ORSCSDS 10:46
PROVIDERS: Internal Medicine Gastroenterology
PROC: 0DJ08ZZ Inspection of Upper Intestinal Tract, Via Natural or Artificial Opening Endoscopic (ICD-10-PCS; principal; 2020-02-05 11:45)
PROC: 0DBK8ZX Excision of Ascending Colon, Via Natural or Artificial Opening Endoscopic, Diagnostic (ICD-10-PCS; principal; 2020-02-05 11:45)
DX: R19.5 Other fecal abnormalities (principal); D12.2 Benign neoplasm of ascending colon; D50.9 Iron deficiency anemia, unspecified; K64.8 Other hemorrhoids; Z87.891 Personal history of nicotine dependence; I10 Essential (primary) hypertension; E83.39 Other disorders of phosphorus metabolism; Z79.01 Long term (current) use of anticoagulants; Z79.82 Long term (current) use of aspirin; I25.2 Old myocardial infarction; I25.10 Atherosclerotic heart disease of native coronary artery without angina pectoris; E03.9 Hypothyroidism, unspecified; Z79.899 Other long term (current) drug therapy
CPT/HCPCS: 88305; J2704; J7120

== ENCOUNTER 2020-02-07 00:51 | Inpatient (IN) | payer OTHER ==
[~2020-02-07] VITALS: Ht 149.9 cm; Wt 65.3 kg
[2020-02-07 01:45] LABS: Calcium, Ionized (POC) 1.03 mmol/L (1.10-1.46); Chloride (POC) 104 mmol/L (98-108); Creatinine (POC) 0.6 mg/dL (0.6-1.0); Glucose (ISTAT POC) 124 mg/dL (70-99); Hemoglobin (POC) 10.2 g/dL (12.0-16.0); Potassium (POC) 4.3 mmol/L (3.5-5.5); Sodium (POC) 136 mmol/L (135-148); Total CO2 (POC) 19 mmol/L (21-32)
[2020-02-07 04:55] LABS: BASOPHILS ABSOLUTE AUTO 0.03 K/mm3 (0.00-0.23); BASOPHILS PERCENT AUTO 0 % (0-2); EOSINOPHILS ABSOLUTE AUTO 0.04 K/mm3 (0.00-0.68); EOSINOPHILS PERCENT AUTO 0 % (0-6); Hematocrit 27.9 % (33.0-51.0); Hemoglobin 8.6 g/dL (11.5-16.0); IMMATURE GRAN ABSOLUTE AUTO 0.05 K/mm3 (0.00-0.10); IMMATURE GRAN PERCENT AUTO 0 % (0-1); LYMPHOCYTES PERCENT AUTO 25 % (21-46); MONOCYTES ABSOLUTE AUTO 0.46 K/mm3 (0.16-1.47); MONOCYTES PERCENT AUTO 4 % (4-13); Mean Corpuscular HGB 25.7 pg (26.0-34.0); Mean Corpuscular HGB Conc 30.8 g/dL (31.5-36.5); Mean Corpuscular Volume 83 fL (80-100); Mean Platelet Volume 10.4 fL (9.1-12.4); NEUTROPHILS ABSOLUTE AUTO 8.94 K/mm3 (1.96-9.15); NEUTROPHILS PERCENT AUTO 71 % (41-73); Platelet Count 280 K/mm3 (150-400); Red Blood Cell Count 3.35 M/mm3 (3.80-5.20); White Blood Cell Count 12.62 K/mm3 (4.00-11.30)
[2020-02-07 05:10] LABS: International Normalized Ratio 1.01; Prothrombin Time Results 10.8 Sec (9.7-11.5)
[2020-02-07 05:21] LABS: Alanine Aminotransfer (ALT/SGP 22 U/L (12-78); Albumin, Blood 2.8 g/dL (3.4-5.0); Albumin/Globulin Ratio 0.9 (0.8-1.8); Anion Gap 7 mmol/L (6-16); Aspartate Aminotrans (AST/SGOT 25 U/L (12-37); Bilirubin, Total 0.3 mg/dL (0.1-1.0); Blood Urea Nitrogen 12 mg/dL (8-24); Bun/Creatinine Ratio 19.6 (12.0-20.0); CO2, Blood 25 mmol/L (21-32); Calcium, Blood 8.5 mg/dL (8.5-10.1); Chloride, Blood 105 mmol/L (98-108); Creatinine, Blood 0.61 mg/dL (0.40-1.00); Globulin, Blood 3.2 g/dL (2.2-4.0); Glomerular Filtration Rate >60 (60-); Glucose, Blood 106 mg/dL (70-99); Magnesium, Blood 1.8 mg/dL (1.6-2.4); Phosphorus, Blood 4.6 mg/dL (2.5-4.9); Potassium, Blood 4.2 mmol/L (3.5-5.5); Sodium, Blood 137 mmol/L (136-145)
[2020-02-07 05:39] LABS: Alk Phos 2076 U/L (50-136)
--- NOTE | 2020-02-07 07:03 | NUR ---
ASSUMED CARE RECEIVED REPORT FROM ER NURSE. PT ARRIVES TO ICU VIA STRETCHER AT 0542. SHE IS ALERT AND ORIENTED X 4, ON ROOM AIR, AND WITH STABLE VITALS. BLOOD PRESSURE IS SOFT, BUT PT APPEARS ASYMPTOMATIC OF HYPOTENSION. SHE HAS THE LAST OF A LITER INFUSING WIDE OPEN TO GRAVITY. PER ER NURSE PT'S COLOR IS IMPROVING. PT DENIES DIZZYNESS/LIGHTHEADEDNESS. SHE COMPLAINS OF 5/10 ACHING BONE PAIN (FROM HER CONGENITAL BONE DISEASE: HYPOPHOSPHATSIA), WHICH IS WORSENED FROM BEING COLD. SHE HAS MANY WARM BLANKETS ON HER. BREATH SOUNDS ARE CLEAR. NO APPARENT DIFFICULTIES IN BREATHING. DENIES CP, SOB, NAUSEA, ABD PAIN, AND NUMBNESS & TINGLING. SHE STATES SHE WISHES TO BE A FULL CODE, BUT DOESN'T WANT ANY EXTRAORDINARY MEASURES BEING TAKEN. PT INFORMS ME THAT HER SON, TORRIE, IS HER POWER OF ATTORNY AND KNOWS HER WISHES. SHE WANTS HIM TO BE AROUND WHEN THEY DO THE MED REC. HE TAKES CARE OF HER AT HOME, WHERE THEY LIVE TOGETHER. BED LOW AND LOCKED. CALL LIGHT WITHIN REACH.
--- NOTE | 2020-02-07 07:31 | NUR ---
ASSUMED CARE: REPORT RECEIVED FROM ANIYAH Meléndez RN. ASSUMED CARE OF THIS PT AT APPROX 0700. ON ASSESSMENT, THE PT IS RESTING QUIETLY. SHE AWAKENS EASILY TO VERBAL STIMULUS & IS ALERT/ORIENTED AT THAT TIME. LS ARE CLEAR T/O, PT ON RA W/ O2 SATS > 92%. MONITOR SHOWS SR W/ HR 80s. BP HYPOTENSIVE AT TIMES BUT IT IS DIFFICULT TO GET AN ACCURATE READING OF PT's BP R/T DEFORMITIES OF ALL EXTREMITIES. PT DENIES ANY DIZZINESS OR LIGHTHEADEDNESS IN REGARDS TO HYPOTENSION, BUT STS FEELING "COLD & SLEEPY." BT NORMOACTIVE & PT DENIES NAUSEA, NPO STATUS. NO CURRENT RECTAL BLEEDING IS NOTED, BUT INSTANCE OF RECTAL BLEEDING DID OCCUR DURING THE NIGHT, PER REPORT. PT HAS YET TO VOID SINCE ARRIVAL TO HOSPITAL, SHE DENIES FEELING THE SENSATION OR NEED TO VOID BLADDER. WILL ADDRESS W/ ONCOMING HOSPITALIST. SKIN CONDITION IS OVERALL INTACT, W/ SOME SCARRING NOTED TO EXTREMITIES R/T EXTENSIVE SURGICAL HX. WILL CONTINUE TO MONITOR & UPDATE NEEDED.
--- NOTE | 2020-02-07 09:00 | NUR ---
DR DESAI / DR SUMNER: DR DESAI IN UNIT & HAS BEEN MADE AWARE OF GI CONSULT ORDER BY DR SUMNRE. HE HAS BEEN AT BEDSIDE TO [facility] PT & DISCUSSED CASE W/ THIS RN. ORDERS PLACED FOR CLEAR LIQUID DIET & PROTONIX. DR SUMNER AT BEDSIDE TO [facility] PT. SHE HAS DISCUSSED THE PT's CASE W/ DR DESAI. SHE WOULD LIKE THE PT TO REMAIN PCU STATUS HER BP IS SOMEWHAT LABILE & SLIGHTLY HYPOTENSIVE. NO OTHER CHANGES AT THIS TIME.
--- NOTE | 2020-02-07 09:15 | NUR ---
UPDATE TO FAMILY: CALL FROM TORRIE, PT's SON, UPDATED HIM ON PT's CURRENT CONDITION & POC. HE STS THAT HE WILL BE IN SOON TO SEE THE PT & HELP THIS RN COMPLETE MED REC FOR ADMISSION.
[2020-02-07 09:55] LABS: Hematocrit 23.5 % (33.0-51.0); Hemoglobin 7.3 g/dL (11.5-16.0)
--- NOTE | 2020-02-07 10:08 | NUR ---
DR SUMNER: CALL TO PROVIDER REGARDING DROP IN H&H, SHE STS SHE WILL PLACE AN ORDER FOR ONE UNIT PRBCs TO BE GIVEN.
[2020-02-07 12:43] LABS: Source, Urine Clean Catch
[2020-02-07 13:04] LABS: Bilirubin, Urine Neg (Neg); Blood, Urine 5+ (Neg); Glucose Qualitative, Urine Neg (Neg); Ketones, Urine Neg (Neg); Leukocyte Esterase, Urine 3+ (Neg); Nitrite, Urine Neg (Neg); Protein, Urine Neg (Neg); Urobilinogen, Urine NORM (Normal)
[2020-02-07 13:21] LABS: Appearance, Urine Hazy (Clear); Color, Urine Pale Yellow (P-Yellow)
[2020-02-07 13:23] LABS: Bacteria Few /hpf; Red Blood Cells, Urine 0-2 /hpf (0-2); Squamous Epithelial Cells Few /hpf (Few)
--- NOTE | 2020-02-07 17:11 | NUR ---
SHIFT SUMMARY: NO ACUTE CHANGES SINCE PRIOR UPDATES. PT REMAINS A&O, PLEASANT & COOPERATIVE. SHE IS LESS DROWSY THIS AFTERNOON AFTER GETTING SOME REST THIS MORNING. LS REMAIN CLEAR T/O, PT ON RA W/ O2 SATS > 92%. MONITOR SHOWS SR W/ HR 70-80s, BP LESS LABILE/ HYPOTENSIVE AFTER 1 UNIT PRBCs COMPLETED. PT HAS NO GI COMPLAINTS & IS TOLERATING PO INTAKE OF CLEAR LIQUIDS W/ NO REDS WELL. NO RECTAL BLEEDING NOTED THIS SHIFT. PT VOIDS W/O DIFFICULTY USING BEDPAN. SKIN CONDITION UNCHANGED. PT HAS BEEN ASSIGNED ROOM PCU4 FOR TRANSFER, PT's SON, TORRIE, HAS BEEN MADE AWARE OF THIS. WILL CONTINUE TO MONITOR & REPORT OFF TO RN ASSUMING CARE.
[2020-02-07 17:20] LABS: Hematocrit 26.3 % (33.0-51.0); Hemoglobin 8.4 g/dL (11.5-16.0)
--- NOTE | 2020-02-07 18:14 | NUR ---
TRANSFER NOTE RECEIVED REPORT FROM GENOVEVA BOWILNG IN ICU. PT TO ROOM AT 1750; 3 PERSON ASSIST TRANSFER WITH SLIDER SHEET TO ROOM. PT ORIENTED TO ROOM AND CALL LIGHT. PT A&Ox4; CALM AND COOPERATIVE WITH CARE. RESTING IN BED, ASSIST WITH REPOSITIONING. LS CLEAR, SPO2 >90% ON RA. PER TELE SINUS RHYTHM 80-90'S. DENIES NAUSEA; NO BM SINCE TRANSFER. PT RPEORTS MILD PAIN, DENIES NEED FOR INTERVENTION. VSS. NO OTHER ACUTE CHANGES NOTED. WILL CONTINUE TO MONITOR UNITL REPORT GIVEN TO ONCOMING RN.
[2020-02-07 19:16] LABS: Hematocrit 26.8 % (33.0-51.0); Hemoglobin 8.4 g/dL (11.5-16.0)
[2020-02-07 23:35] LABS: Hematocrit 26.6 % (33.0-51.0); Hemoglobin 8.5 g/dL (11.5-16.0)
[2020-02-08 05:07] LABS: BASOPHILS ABSOLUTE AUTO 0.03 K/mm3 (0.00-0.23); BASOPHILS PERCENT AUTO 0 % (0-2); EOSINOPHILS ABSOLUTE AUTO 0.22 K/mm3 (0.00-0.68); EOSINOPHILS PERCENT AUTO 3 % (0-6); Hematocrit 25.1 % (33.0-51.0); IMMATURE GRAN ABSOLUTE AUTO 0.02 K/mm3 (0.00-0.10); IMMATURE GRAN PERCENT AUTO 0 % (0-1); LYMPHOCYTES ABSOLUTE AUTO 3.74 K/mm3 (0.84-5.20); LYMPHOCYTES PERCENT AUTO 55 % (21-46); MONOCYTES ABSOLUTE AUTO 0.52 K/mm3 (0.16-1.47); MONOCYTES PERCENT AUTO 8 % (4-13); Mean Corpuscular HGB 25.9 pg (26.0-34.0); Mean Corpuscular HGB Conc 31.9 g/dL (31.5-36.5); Mean Corpuscular Volume 81 fL (80-100); Mean Platelet Volume 10.2 fL (9.1-12.4); NEUTROPHILS ABSOLUTE AUTO 2.32 K/mm3 (1.96-9.15); NEUTROPHILS PERCENT AUTO 34 % (41-73); Platelet Count 199 K/mm3 (150-400); RDW Coefficient Variation 18.1 % (11.7-14.2); RDW Standard Deviation 53.4 fL (35.1-46.3); Red Blood Cell Count 3.09 M/mm3 (3.80-5.20); White Blood Cell Count 6.85 K/mm3 (4.00-11.30)
[2020-02-08 05:31] LABS: Albumin, Blood 2.5 g/dL (3.4-5.0); Anion Gap 6 mmol/L (6-16); Blood Urea Nitrogen 6 mg/dL (8-24); CO2, Blood 26 mmol/L (21-32); Calcium, Blood 7.8 mg/dL (8.5-10.1); Chloride, Blood 110 mmol/L (98-108); Creatinine, Blood 0.55 mg/dL (0.40-1.00); Glomerular Filtration Rate >60 (60-); Glucose, Blood 87 mg/dL (70-99); Phosphorus, Blood 4.3 mg/dL (2.5-4.9); Potassium, Blood 3.6 mmol/L (3.5-5.5); Sodium, Blood 142 mmol/L (136-145)
--- NOTE | 2020-02-08 05:40 | NUR ---
END OF SHIFT SUMMARY NO ACUTE CHANGES THIS SHIFT. VSS. REMAINS RA. SR. LUNGS CLEAR T/O. HAS NOT HAD BM THIS MOVEMENT. NO RECTAL BLEEDING NOTED. PT USING BEDPAN W/ LITTLEASSIST. DEFECTS NOTED TO ALL EXTREMITIES, HX HYPOPHOSPHOTASIA. POWERGLIDE DRAWS WELL. FLUSH WITH NS VERY SLOWLY PT'S TAASTE/SMELL VERY SENSITICVE TO THIS AND WRETCHES AT TIMES WITH FAST FLUSHES. THIS RN HAS COMPLETED TURBID FLUSHING OF POWERGLIDE HOWEVER TO MAINTAIN PATENCY PF LINE. PT REPOSITIONING SELF IN BED. WILL CONTINUE TO MONITOR UNTIL SHIFT CHANGE.
[2020-02-08 10:54] LABS: Hematocrit 24.4 % (33.0-51.0); Hemoglobin 7.7 g/dL (11.5-16.0)
[2020-02-08 13:31] LABS: Hematocrit 25.3 % (33.0-51.0); Hemoglobin 8.1 g/dL (11.5-16.0)
[2020-02-08 18:23] LABS: Hematocrit 24.5 % (33.0-51.0); Hemoglobin 7.8 g/dL (11.5-16.0)
--- NOTE | 2020-02-08 18:26 | NUR ---
1800 RECEIVED PT TO RM 338 FROM PCU 4 VIA BED EXCHANGE. A&O, VERY PLEASANT. DEFORMITIES NOTED TO ALL EXTREMITIES. PT REPORTED THEM R/T THE DISEASE PROCESS SHE HAS; SEE CHART. PT ADMITTED FOR BRBPR; STABLE AT THIS TIME, BUT WAITING FOR SAFE DISCHARGE. LATEST LAB DRAW JUST COMPLETED FROM YAMILET SANFORD; RESULTS NOT RECEIVED YET. IV FLUSHED SLOW PER PT SENSITIVITY. RECEIVED CL DIET PRIOR TO TX TONIGHT. DENIED FURTHER NEEDS. RESTING QUIETLY WATCHING TV. CALL LT IN REACH.
--- NOTE | 2020-02-08 18:55 | NUR ---
ASSUMED CARE RECEIVED REPORT FROM GENOVEVA MILLS. ASSUMED CARE OF PT. RESTING IN BED COMFORTABLY AT THIS TIME, NO S/S ACUTE DISTRESS NOTED, RESPS EVEN AND UNLABORED. PT DENIES DISCOMFORT AT THIS TIME, REPORTS SHE IS BEDREST AT BASELINE, USES A W/C FOR MOBILITY. DENIES NEEDS. CALL LIGHT, POSSESSIONS IN REACH, WILL CONTINUE TO MONITOR PT CONDITION.
--- NOTE | 2020-02-08 19:33 | NUR ---
TRANSFER NOTE PT A&Ox4; CALM AND COOPERATIVE WITH CARE. PT ASSISTS WITH REPOSITIONING AND MOVED IND IN BED. BEDBOUND AT BASELINE. PT REPORTS CHRONIC PAIN TO BLE; MEDICATED PER EMAR. PT DENIES SOB, NASUEA, CHEST PAIN/PRESSURE AND DIZZINESS. PT HAD 1 DARK RED BM THIS AFTENROON; NOTIFIED DR DESAI AND DR PAZ; NEW ORDER ENTERED. PT HR INCREASED TO 110-140'S, NOTIFIED DR TAYLOR ORDER FOR H&H; NOTIIFED OF RESULTS AND NEW ORDER TO TRANSFER TO MEDICAL FLOOR WITH TELE. OTHER VSS. NO OTHER ACUTE CHANGES NOTED. REPORT GIVEN TO RN ASSUMING CARE OF PT; PT TRANSFER TO ROOM [phone].
--- NOTE | 2020-02-08 20:11 | NUR ---
PHYSICIAN COMMUNICATION SPOKE TO ALESSANDRA TYLER REGARDING PT'S RECENT H&H. NO NEW ORDERS RECEIVED AT THIS TIME, WILL CONTINUE TO MONITOR PT'S UPCOMING H&H RESULTS.
--- NOTE | 2020-02-09 04:14 | NUR ---
SHIFT SUMMARY PT SLEPT ON AND OFF T/O NIGHT, C/O "FEELING SHAKY." STATED SHE HADN'T EATEN ANY SOLID FOOD SINCE LAST SUNDAY. PT OFFERED JELLO, STATED SHE FELT BETTER AFTER EATING. PAIN MANAGED WITH MEDS PER EMAR, EFFECTIVE. TRACE AMT OF BRB GA NOTED AFTER BEDPAN USE, ABD SOFT, NON-DISTENDED, NON-TENDER. NO BM OF YET. H&H PENDING FOR THIS AM, WILL MONITOR FOR RESULTS. NO ACUTE EVENTS NOTED T/O NIGHT, VS STABLE. DENIES NEEDS AT THIS TIME, CALL LIGHT, POSSESSIONS IN REACH, BED IN LOWEST POSITION. REMINDED TO CALL WITH NEEDS, INDICATED UNDERSTANDING. WILL CONTINUE TO MONITOR PT UNTIL DAY RN ASSUMES CARE.
[2020-02-09 05:46] LABS: Hematocrit 25.1 % (33.0-51.0); Hemoglobin 7.9 g/dL (11.5-16.0)
[2020-02-09 11:26] LABS: Hematocrit 24.3 % (33.0-51.0); Hemoglobin 7.7 g/dL (11.5-16.0)
[2020-02-09 11:47] LABS: Percent Saturation 11.2 % (15.0-50.0)
--- NOTE | 2020-02-09 12:59 | NUR ---
called answering service to see if was going to round on patient. answering service called md and sts will see patient today. advised 1100 h%h in and dropped by 0.1. sts will order another for 1600.
[2020-02-09 16:37] LABS: Hematocrit 26.1 % (33.0-51.0); Hemoglobin 8.2 g/dL (11.5-16.0)
--- NOTE | 2020-02-09 17:45 | NUR ---
ALERT. ORIENTED. H&H DONE FEW TIMES TODAY AND APPEARS STABLE. WAS IN AND ORDERED CT. PATIENT HAS GENETIC ABNORMALITY OF HYPOPHOSPHODEMIA WHERE BONES BREAK EASILY. F.A. BONES CURVED. NO B.M THIS SHIFT. NO ACUTE CHANGES. TELE ON. [facility]
[2020-02-10 05:56] LABS: Hematocrit 26.2 % (33.0-51.0); Hemoglobin 8.2 g/dL (11.5-16.0)
--- NOTE | 2020-02-10 06:26 | NUR ---
SHIFT SUMMARY AWAKE AT INTERVALS THIS SHIFT, FOR ASSISTANCE WITH BEDPAN AND FOR ANALGESICS. SEE MAR FOR DETAILS ON PAIN MEDS. CALL LIGHT IN REACH.
--- NOTE | 2020-02-10 18:53 | NUR ---
PT IS A/OX3, PLEASANT AND COOPERATIVE, THE PT HAS BEEN BEDREST, THE PT APPEARS TO BE BREATHING EASILY AT REST, THE PT WAS MEDICATED FOR PAIN AND NAUSEA X1 AFTER CLEAR LIQUID LUNCH TODAY, SINCE THEN THE PT HAS HAD A FULL LIQUID DIET AND SEEMS TO BE TOLERATING IT WELL SO FAR, THE PT HAS NOT HAD A BM SO FAR THIS SHIFT, CALL LIGHT IN REACH, WILL CONTINUE TO MONITOR AND ASSESS FOR CHANGES
--- NOTE | 2020-02-11 05:11 | NUR ---
SHIFT SUMMARY HAS BEEN RESTING QUIETLY WITH FEW INTERRUPTIONS THIS SHIFT, AWAKE A FEW TIMES FOR ASSISTANCE WITH THE BEDPAN. ABLE TO REPOSITION SELF. CALL LIGHT IN REACH
[2020-02-11 06:02] LABS: Hematocrit 25.6 % (33.0-51.0); Hemoglobin 7.8 g/dL (11.5-16.0)
[2020-02-11 11:20] LABS: Hematocrit 27.7 % (33.0-51.0); Hemoglobin 8.6 g/dL (11.5-16.0)
[2020-02-11] MEDS ORDERED: [UNRECOGNIZED DRUG - OTHER] IV ×2 (15:17)
--- NOTE | 2020-02-11 17:15 | NUR ---
PT DISCHARGED THE PT AND HER FAMILY VERBALIZED UNDERSTANDING OF THE DC INSTRUCTIONS, THE PT HAD A LARGE NON BLOODY BM PRIOR TO DC, FOLLOWUP APPOINTMENTS WERE ESTABLISHED FOR THE PT PRIOR TO DC, THE PT APPEARED TO BE BREATHING EASILY AT THE TIME OF DC, THE PTS POWERGLIDE DRESSING WAS CHANGED PRIOR TO DC, PT WAS TRANSFERED VIA WHEELCHAIR ACCOMPANIED BY HER FAMILY
== END 2020-02-11 16:51 | disposition home or self-care (01) | DRG 920 ==
LOC: ER 00:51 → ICUW 00:52 → PCU 18:02 → MEDS 02-08 17:45
PROVIDERS: Emergency Medicine; Family Medicine; Internal Medicine; ADMIT Internal Medicine
DX: K91.840 Postprocedural hemorrhage of a digestive system organ or structure following a digestive system procedure (principal); D62 Acute posthemorrhagic anemia; E03.9 Hypothyroidism, unspecified; Z79.82 Long term (current) use of aspirin; E83.31 Familial hypophosphatemia; I10 Essential (primary) hypertension; I95.9 Hypotension, unspecified; Z87.891 Personal history of nicotine dependence; K21.9 Gastro-esophageal reflux disease without esophagitis; E83.39 Other disorders of phosphorus metabolism; I25.10 Atherosclerotic heart disease of native coronary artery without angina pectoris
CPT/HCPCS: 36430; 36556; 74177; 80047; 80053; 80069; 81001; 82607; 82728; 82746; 82947; 83540; 83550; 83735; 84100; 85014; 85018; 85025; 85610; 85730; 86850; 86900; 86901; 86923; 87086; 93005; 93010; 96361-59; 96374-59; 96376; 99285-25; A9270-GY; C1751; C9113; G0378; J2405; J2916; J7030; P9016

== ENCOUNTER 2020-02-14 00:02 | Day surgery (SDC) | payer OTHER ==
[~2020-02-14 00:02] MED LIST changes: +[UNRECOGNIZED DRUG - OTHER] IV
== END 2020-02-14 14:36 | disposition home or self-care (01) ==
LOC: ATC 00:02
DX: E61.1 Iron deficiency (principal); K91.840 Postprocedural hemorrhage of a digestive system organ or structure following a digestive system procedure; K21.9 Gastro-esophageal reflux disease without esophagitis; G89.29 Other chronic pain; I10 Essential (primary) hypertension; I25.10 Atherosclerotic heart disease of native coronary artery without angina pectoris; Z87.891 Personal history of nicotine dependence; Z88.1 Allergy status to other antibiotic agents; Z79.82 Long term (current) use of aspirin; Z79.899 Other long term (current) drug therapy; E83.39 Other disorders of phosphorus metabolism; E03.9 Hypothyroidism, unspecified; Z79.02 Long term (current) use of antithrombotics/antiplatelets
CPT/HCPCS: 96365; J2916

== ENCOUNTER 2020-09-09 07:13 | Day surgery (SDC) | payer OTHER ==
[~2020-09-09] VITALS: Ht 147.3 cm; Wt 52.3 kg
[~2020-09-09 07:13] MED LIST changes: +NEURONTIN300 MG PO
--- NOTE | 2020-09-09 08:24 | NUR ---
History, Chart, Medications and Allergies reviewed before start of procedure.Lungs clear T/O to Auscultation. Patient confirms NPO status and agrees with scheduled surgery. Pre-Op teaching done. Pt verbalizes understanding.
--- NOTE | 2020-09-09 10:29 | NUR ---
INCISION TO LEFT SHOULDER WITH DURABOND IN PLACE. NO DRAINAGE OR BLEEDING NOTED. PT SLEEPING.
--- NOTE | 2020-09-09 11:00 | NUR ---
Discharge instructions reviewed with patient. Patient verbalizes understanding. Copy given to patient to take home. Patient States Post-Procedure ride home has been arranged. Discharged via wheelchair to private car for ride home. INCISION REMAINS INTACT. SON IN TO HELP WITH PT CARE. CHANGED BRIEF AND PROVIDED [facility]. ALL BELONINGS RETUNED TO PATIENT.
== END 2020-09-09 11:02 | disposition home or self-care (01) ==
LOC: ORSCMMR 07:13 → ORD 09:30 → ORSCMMR 09:30
PROVIDERS: Surgery
PROC: 0JBF0ZZ Excision of Left Upper Arm Subcutaneous Tissue and Fascia, Open Approach (ICD-10-PCS; principal; 2020-09-09 08:30)
DX: D17.1 Benign lipomatous neoplasm of skin and subcutaneous tissue of trunk (principal); I10 Essential (primary) hypertension; I25.2 Old myocardial infarction; I25.10 Atherosclerotic heart disease of native coronary artery without angina pectoris; E78.5 Hyperlipidemia, unspecified; E03.9 Hypothyroidism, unspecified; K21.9 Gastro-esophageal reflux disease without esophagitis; Z79.899 Other long term (current) drug therapy; Z79.82 Long term (current) use of aspirin
CPT/HCPCS: 88304; A9270; J0690; J1100; J2250; J2370; J2405; J2704; J3010; J7120

== ENCOUNTER 2025-02-09 15:29 | Emergency (ER) | payer OTHER ==
[~2025-02-09] VITALS: Ht 142.2 cm; Wt 57.1 kg
[2025-02-09] MEDS ORDERED: TRAM50 PO (17:14)
[2025-02-09 17:30] VITALS: BP 151/102
== END 2025-02-09 20:12 | disposition home or self-care (01) ==
LOC: ER 15:29
DX: S80.12XA Contusion of left lower leg, initial encounter (principal); E83.39 Other disorders of phosphorus metabolism; I10 Essential (primary) hypertension; E03.9 Hypothyroidism, unspecified; I25.10 Atherosclerotic heart disease of native coronary artery without angina pectoris; K21.9 Gastro-esophageal reflux disease without esophagitis; Z87.891 Personal history of nicotine dependence; Z88.1 Allergy status to other antibiotic agents; Z88.8 Allergy status to other drugs, medicaments and biological substances; Z79.890 Hormone replacement therapy; Z79.82 Long term (current) use of aspirin; Z79.899 Other long term (current) drug therapy; W06.XXXA Fall from bed, initial encounter
CPT/HCPCS: 73590; 99283-25

== ENCOUNTER 2025-06-23 13:31 | Inpatient (IN) | payer OTHER ==
[~2025-06-23] VITALS: Ht 157.5 cm; Wt 53.1 kg
[~2025-06-23 13:31] MED LIST changes: +TRAM50 PO
[2025-06-23] MEDS ORDERED: NS 1,000 ML IV SCH ×2 (14:25→16:35)
[2025-06-23 14:29] LABS: Source, Urine Straight Cath
[2025-06-23 14:33] LABS: Bilirubin, Urine Neg (Neg); Color, Urine Yellow (P-Yellow); Glucose Qualitative, Urine Neg (Neg); Ketones, Urine 1+ (Neg); Leukocyte Esterase, Urine 3+ (Neg); Protein, Urine 3+ (Neg); Specific Gravity, Urine 1.010 (1.003-1.022); Urobilinogen, Urine NORM (Normal)
[2025-06-23] MEDS ORDERED: Ondansetron HCl 2 MG / ML 2ML Vial IV ONE (14:35)
[2025-06-23] MEDS ORDERED: CefTRIAXone Sodium 1,000 MG in NS 100 ML IV ONE (14:35)
[2025-06-23 14:38] LABS: BASOPHILS ABSOLUTE AUTO 0.08 K/mm3 (0.00-0.23); BASOPHILS PERCENT AUTO 0 % (0-2); EOSINOPHILS ABSOLUTE AUTO 0.01 K/mm3 (0.00-0.68); EOSINOPHILS PERCENT AUTO 0 % (0-6); Hematocrit 42.3 % (33.0-51.0); Hemoglobin 14.3 g/dL (11.5-16.0); IMMATURE GRAN ABSOLUTE AUTO 0.10 K/mm3 (0.00-0.10); IMMATURE GRAN PERCENT AUTO 1 % (0-1); LYMPHOCYTES ABSOLUTE AUTO 2.50 K/mm3 (0.84-5.20); LYMPHOCYTES PERCENT AUTO 13 % (21-46); MONOCYTES ABSOLUTE AUTO 1.12 K/mm3 (0.16-1.47); MONOCYTES PERCENT AUTO 6 % (4-13); Mean Corpuscular HGB Conc 33.8 g/dL (31.5-36.5); Mean Corpuscular Volume 91 fL (80-100); NEUTROPHILS ABSOLUTE AUTO 16.13 K/mm3 (1.96-9.15); NEUTROPHILS PERCENT AUTO 81 % (41-73); NRBC ABSOLUTE 0.00 K/mm3 (0.00-0.02); NRBC Auto 0.0 /100 WBC (0.0-0.2); Platelet Count 248 K/mm3 (150-400); RDW Coefficient Variation 15.2 % (11.7-14.2); RDW Standard Deviation 50.3 fL (35.1-46.3)
[2025-06-23 14:48] LABS: White Blood Cells, Urine TNTC /hpf (0-5)
[2025-06-23 15:09] LABS: Influenza A, PCR NEGATIVE (NEGATIVE); Influenza B, PCR NEGATIVE (NEGATIVE); Resp Syncytial Virus, PCR NEGATIVE (NEGATIVE); SARS-Cov-2 (COVID-19) PCR, MMC NEGATIVE (NEGATIVE)
[2025-06-23 15:13] LABS: Alanine Aminotransfer (ALT/SGP 21.0 U/L (12-78); Albumin, Blood 3.0 g/dL (3.4-5.0); Albumin/Globulin Ratio 0.7 (0.8-1.8); Anion Gap 11.0 mmol/L (3-11); Aspartate Aminotrans (AST/SGOT 20.0 U/L (12-37); Bilirubin, Total 0.7 mg/dL (0.1-1.0); Blood Urea Nitrogen 21.0 mg/dL (8-24); CO2, Blood 25.0 mmol/L (21-32); Calcium, Blood 9.8 mg/dL (8.5-10.1); Chloride, Blood 105.0 mmol/L (98-108); Creatinine, Blood 0.68 mg/dL (0.40-1.00); Globulin, Blood 4.3 g/dL (2.2-4.0); Glucose, Blood 139.0 mg/dL (70-99); Potassium, Blood 4.2 mmol/L (3.5-5.5); Sodium, Blood 137.0 mmol/L (136-145); Total Protein, Blood 7.3 g/dL (6.4-8.2)
[2025-06-23] MEDS ORDERED: Magnesium Hydroxide Conc 10 ML UDC PO PRN (16:35)
[2025-06-23] MEDS ORDERED: Ondansetron HCl 2 MG / ML 2ML Vial IV PRN (16:35)
[2025-06-23] MEDS ORDERED: FLU VACC TS2025(65UP)/MF59C/PF 45 MCG/0.5 ML SYRINGE IM SCH (16:35)
[2025-06-23] MEDS ORDERED: HYDROcodone 5-APAP 325 TAB PO PRN (16:40)
[2025-06-23 18:21] VITALS: BP 126/77
--- NOTE | 2025-06-23 18:43 | NUR ---
PT ARRIVED TO ROOM AT 1810. PT APPEARS TO BE DOING BETTER THAN WHEN SHE ARRIVED AND WAS ABLE TO ANSWER SOME SIMPLE QUESTIONS WHICH IS BETTER THAN THE YES AND NO SHE WAS DOING IN ER. PT SETTLED INTO ROOM AND CALL LIGHT IS PLACED WITHIN REACH AND PERWICK HAS BEEN PLACE. WILL CONTINUE TO MONITOR.
[2025-06-23 20:14] VITALS: BP 141/101
[2025-06-23] MEDS ORDERED: Lactobacil 2-S.Thermo-Bifido 1 1 Cap PO SCH (21:00)
[2025-06-24] MEDS ORDERED: EUTHYROX88 MCG PO (00:20)
[2025-06-24] MEDS ORDERED: CELE200 PO (00:21)
[2025-06-24 05:11] LABS: BASOPHILS ABSOLUTE AUTO 0.04 K/mm3 (0.00-0.23); BASOPHILS PERCENT AUTO 0 % (0-2); EOSINOPHILS ABSOLUTE AUTO 0.02 K/mm3 (0.00-0.68); EOSINOPHILS PERCENT AUTO 0 % (0-6); Hematocrit 37.9 % (33.0-51.0); Hemoglobin 12.4 g/dL (11.5-16.0); IMMATURE GRAN ABSOLUTE AUTO 0.10 K/mm3 (0.00-0.10); IMMATURE GRAN PERCENT AUTO 1 % (0-1); LYMPHOCYTES ABSOLUTE AUTO 1.35 K/mm3 (0.84-5.20); LYMPHOCYTES PERCENT AUTO 9 % (21-46); MONOCYTES ABSOLUTE AUTO 1.19 K/mm3 (0.16-1.47); MONOCYTES PERCENT AUTO 8 % (4-13); Mean Corpuscular HGB Conc 32.7 g/dL (31.5-36.5); Mean Corpuscular Volume 95 fL (80-100); NEUTROPHILS ABSOLUTE AUTO 12.54 K/mm3 (1.96-9.15); NEUTROPHILS PERCENT AUTO 82 % (41-73); NRBC ABSOLUTE 0.00 K/mm3 (0.00-0.02); NRBC Auto 0.0 /100 WBC (0.0-0.2); Platelet Count 174 K/mm3 (150-400); RDW Coefficient Variation 15.3 % (11.7-14.2); RDW Standard Deviation 53.9 fL (35.1-46.3)
--- NOTE | 2025-06-24 05:11 | NUR ---
SHIFT SUMMARY PT A&OX2-3, PLEASANT AND COOPERATIVE WITH CARE. PT REPORTS EXPERIENCING IMMENSE PAIN WITH REPOSITIONING. PT HAS BRITTLE BONE DISEASE AND HAS LIMB DEFORMITIES. NO ACUTE CHANGES THIS SHIFT. PT RESTED T/O SHIFT WITH EVEN AND UNLABORED RESPIRATIONS, BED IN THE LOWEST POSITION, AND CALL LIGHT WITHIN REACH.
[2025-06-24 05:26] VITALS: BP 144/93
[2025-06-24 05:35] LABS: Anion Gap 9.0 mmol/L (3-11); Blood Urea Nitrogen 21.0 mg/dL (8-24); CO2, Blood 22.0 mmol/L (21-32); Calcium, Blood 8.8 mg/dL (8.5-10.1); Chloride, Blood 108.0 mmol/L (98-108); Creatinine, Blood 0.64 mg/dL (0.40-1.00); Glucose, Blood 108.0 mg/dL (70-99); Potassium, Blood 3.6 mmol/L (3.5-5.5); Sodium, Blood 135.0 mmol/L (136-145)
[2025-06-24 07:48] VITALS: BP 126/75
[2025-06-24] MEDS ORDERED: CefTRIAXone Sodium 2,000 MG in NS 100 ML IV SCH (09:00)
[2025-06-24] MEDS ORDERED: Enoxaparin 40 MG/0.4 ML SYR SC SCH (09:00)
[2025-06-24] MEDS ORDERED: NS 250 ML IV PRN (09:25)
[2025-06-24] MEDS ORDERED: NS 500 ML IV ONE ×2 (09:25→10:25)
[2025-06-24 10:11] VITALS: BP 149/83
[2025-06-24] MEDS ORDERED: Miconazole Nitrate 2% 85 GM PWD TOP PRN (15:05)
[2025-06-24 15:50] VITALS: BP 119/71
[2025-06-24] MEDS ORDERED: CefTRIAXone Sodium 1,000 MG in NS 100 ML IV SCH (16:00)
--- NOTE | 2025-06-24 16:42 | NUR ---
CALLED DR BEST- PT HAS HAD MINIMAL URINE OUTPUT AFTER MORE THAN 1L OF IVF. URINE IN PUREWICK WAS DARK YELLOW ORANGE. PUREWICK WAS CHANGED AND EMPTIED. URINE IN THE PURE WICK STILL SMALL IN VOLUME BUT NOW PINKISH RED. ORDER RECIEVED FOR A BLADDER SCAN.
[2025-06-24 17:47] LABS: Anion Gap 9.0 mmol/L (3-11); Blood Urea Nitrogen 22.0 mg/dL (8-24); CO2, Blood 21.0 mmol/L (21-32); Calcium, Blood 8.4 mg/dL (8.5-10.1); Chloride, Blood 107.0 mmol/L (98-108); Creatinine, Blood 0.7 mg/dL (0.40-1.00); Glucose, Blood 114.0 mg/dL (70-99); Potassium, Blood 3.7 mmol/L (3.5-5.5); Sodium, Blood 133.0 mmol/L (136-145)
[2025-06-24 19:33] VITALS: BP 121/86
--- NOTE | 2025-06-24 19:55 | NUR ---
SHIFT SUMMARY- BEDSIDE REPORT COMPLETED WITH NIGHT RN. PT IN BED SLEEPING, UNABLE TO WAKE HER FULLY. SHE APPEARS MORE LETHARGIC THAN ON PREVIOUS INTERACTIONS JUST 45 MINS AGO. CALLED NIGHT HOSPITALIST PREV RESIDENT REQ WHEN THE BNP RESULT CAME BACK (IF ELEVATED) IT WAS ELEVATED. PT LUNG SOUNDS MORE COARSE AND SHE APPEARS TO HAVE MORE ACCESSORY MUSCLE USE NOTED, THOUGH WHEN ASKED SHE DENIES SOB. O2 SATS GREATER THAN 90% ON ROOM AIR. ORDER TO DC IVF, IV SL AT THAT TIME. ORDER FOR CHEST XR AND ECHO IN THE AM. NIGHT RESIDENT DR MONTOYA WAS AT THE BEDSIDEAFTER SHIFT CHANGE WITH BOTH DAY AND NIGHT RN. PT SODIUM WAS 137 ON ADMIT BUT NOW IS 133. PT HAS A LOW GRADE FEVER 100.3 ON EVENING VITALS. SPOKE TO NIGHT CHARGE HE IS AWARE AND WILL PROVIDE ASSISTANCE IF NEEDED.
[2025-06-25 00:48] VITALS: BP 104/67
[2025-06-25 04:40] VITALS: BP 118/85
--- NOTE | 2025-06-25 06:44 | NUR ---
SMALL EQUIPMENT OPERATOR SUMMARY PT A&OX3, VSS. ABLE TO COMMUNICATE NEEDS ADEQUATELY. PT HAS BEEN ASLEEP FOR MOST OF THE NIGHT. CHEST RISE/RESPIRATIONS NOTED. PUREWICK CONTINUES TO DRAIN LIGHT RED URINE W/ SEDIMENT. DR. MONTOYA CAME UP TO SEE PT EARLIER THIS EVENING. DR. MONTOYA AWARE OF PT'S URINARY CONDITION. CONTINUES TO BE ON Q4H VS PER ORDER. FLUIDS CONTINUED TO BE STOPPED PER DR. MONTOYA. TYLENOL ADMIN X 1 FOR FEVER. TEMP WNL AT LAST VS CHECK. BED RAILS UP X 2, BED IN LOWEST POSITION, BED WHEELS LOCKED, PERSONAL BELONGINGS AND CALL LIGHT WITHIN REACH FOR SAFETY.
[2025-06-25 07:39] VITALS: BP 138/90
--- NOTE | 2025-06-25 09:03 | NUR ---
ASSUMED CARE OF PT- PT IS MORE ALERT WHEN SHE IS WOKEN BY STAFF, WHEN COMPARED TO END OF SHIFT LAST NIGHT. SHE WAKES AND IS ABLE TO TAKE HER MEDS WHOLE WITH WATER. URINE IS STILL RED AND OUTPUT IS SMALL IN VOLUME. IVF DC'D BY NIGHT HOSPITALIST LAST NIGHT AND AM CHEST XR ORDERED WELL ECHO, FOR ELEVATED BNP WELL MORE MOIST BREATH SOUNDS. LUNG SOUNDS ARE COARSE THIS AM WITH SOME CRACKLES BILATERALLY.
--- NOTE | 2025-06-25 10:03 | NUR ---
CHARTING ERROR NOTED- I&O'S ON THIS PT SHOW LARGE AMOUNT OF OUTPUT. WHEN REVIEWING THE SOURCE OF THE OUTPUT IT WAS NOTED: 125ML FROM OSTOMY (THIS PT DOES NOT HAVE AN OSTOMY) 125ML LIQUID STOOL (NOTED ON THE SAME I&O CHARTING) 450ML FROM PEGUERO (PT DOES NOT HAVE A PEGUERO) 100ML FROM J TUBE (PT DOES NOT HAVE A J TUBE) 100ML FROM MARIE DRAIN (PT DOES NOT HAVE A MARIE DRAIN) THIS CHARTING APPEARS TO HAVE BEEN PLACED ON THE WRONG PT. THIS STAFF MEMBER IS NOT HERE TO ASK. UNABLE TO UNDO OTHER STAFF CHARTING IT CAN NOT BE CORRECTED I&O ARE INCORRECT FOR THIS PT. IS AWARE.
[2025-06-25 11:50] VITALS: BP 121/80
[2025-06-25 12:43] LABS: BASOPHILS ABSOLUTE AUTO 0.04 K/mm3 (0.00-0.23); BASOPHILS PERCENT AUTO 0 % (0-2); EOSINOPHILS ABSOLUTE AUTO 0.12 K/mm3 (0.00-0.68); EOSINOPHILS PERCENT AUTO 1 % (0-6); Hematocrit 37.4 % (33.0-51.0); Hemoglobin 12.2 g/dL (11.5-16.0); IMMATURE GRAN ABSOLUTE AUTO 0.07 K/mm3 (0.00-0.10); IMMATURE GRAN PERCENT AUTO 1 % (0-1); LYMPHOCYTES ABSOLUTE AUTO 1.05 K/mm3 (0.84-5.20); LYMPHOCYTES PERCENT AUTO 8 % (21-46); MONOCYTES ABSOLUTE AUTO 1.40 K/mm3 (0.16-1.47); MONOCYTES PERCENT AUTO 10 % (4-13); Mean Corpuscular HGB Conc 32.6 g/dL (31.5-36.5); Mean Corpuscular Volume 93 fL (80-100); NEUTROPHILS ABSOLUTE AUTO 11.02 K/mm3 (1.96-9.15); NEUTROPHILS PERCENT AUTO 80 % (41-73); NRBC ABSOLUTE 0.00 K/mm3 (0.00-0.02); NRBC Auto 0.0 /100 WBC (0.0-0.2); Platelet Count 203 K/mm3 (150-400); RDW Coefficient Variation 15.1 % (11.7-14.2); RDW Standard Deviation 52.4 fL (35.1-46.3)
[2025-06-25 13:03] LABS: Anion Gap 8.0 mmol/L (3-11); Blood Urea Nitrogen 21.0 mg/dL (8-24); CO2, Blood 24.0 mmol/L (21-32); Calcium, Blood 9.0 mg/dL (8.5-10.1); Chloride, Blood 106.0 mmol/L (98-108); Creatinine, Blood 0.55 mg/dL (0.40-1.00); Glucose, Blood 160.0 mg/dL (70-99); Potassium, Blood 3.4 mmol/L (3.5-5.5); Sodium, Blood 135.0 mmol/L (136-145)
[2025-06-25 16:18] VITALS: BP 114/73
[2025-06-25 19:55] VITALS: BP 125/82
--- NOTE | 2025-06-25 20:13 | NUR ---
SHIFT SUMMARY- PT WAS ROLLED AND REPOSITIONED Q2, WHEN SHE WAS ASSISTED TO ROLL ON HER LEFT SIDE IT WAS NOTED THAT HER HAIR WAS MATTED AROUND HER BRAID IN THE BACK. HAIR WAS UNBRAIDED SO THE FÉLIX COULD BE COMBED OUT. UPON GETTING THE HAIR UNMATTED THE PT HAD EXTREMELY NOTICABLE THICK FLAKES OF DANDER UP TO THE SIZE OF A DIME OR JAY, SOME OF THESE AREAS WERE CLUMPED TOGETHER. SOME OF THE DANDER WAS MOIST AND BECAME GOOEY IN THE HAIR. MOST OF IT FLAKED OFF WHEN COMBED. A LARGE BARIATRIC BED HARTMAN WAS USED A WASH BASIN FOR THE PT HAIR. HAIR WAS SATURATED AND WASHED AND RINCED TWICE, THEN CONDITIONER WAS APPLIED TO THE PT WHOLE SCALP. LUMBER MATERIAL HANDLER ASSISTED THE PT BY PLACING PIGTAIL ICELANDIC BASSAM IN THE PT HAIR. THE PT HAD A LARGE SPOT ON HER HEAD THAT HAD NO HAIR AT ALL, HER SCALP IS CLEAN IS THE HAIR. PT HAD CRUSTED SKIN THE SAME IN THE CENTER OF HER PALMS. THE LUMBER MATERIAL HANDLER REMOVED HER DENTURES AND THEY HAD NOT BEEN CLEANED IN A WHILE EITHER. OVER ALL THE PT HAD NO OVERT SIGNS OF NEGLECT HOWEVER THE PT HAIR HAS NOT HAD PROPER CARE FOR A WHILE. WILL SPEAK TO HER SON ABOUT THE IMPORTANCE OF HAIR MAINTENANCE FOR THE PT. PT DID STATE HER SON CARRIES HER TO THE BATHROOM WHEN HER CAREGIVERS ARE THERE, "BUT THEY JUST SIT ON THEIR PHONES, AND DON'T DO ANYTHING." BEDSIDE REPORT COMPLETED WITH NIGHT RN. PT SITTING UP IN BED, NO S&S OF DISTRESS, SHE IS AWAKE AND VISITING WITH STAFF DURING THE REPORT.
[2025-06-26 00:53] VITALS: BP 136/81
[2025-06-26 04:29] VITALS: BP 135/81
--- NOTE | 2025-06-26 06:11 | NUR ---
DECKHAND SUMMARY NO ACUTE CHANGES. PT VERY PAINFUL WITH MOVEMENT. REGULAR ROUNDING AND REPOSITIONING T/O THE NIGHT. NOTED CONFUSION AT TIMES. PT CALLED RN TO BEDSIDE TO LOOK AT IV DRESSING. IV'S PATENT. SOME DRIED BLOOD TO THE RIGHT AC DRESSING WHICH WAS PRESENT AT BEGINNING OF SHIFT. DURING SUBSEQUENT CARE THE PT SAID SHE WAS LEAKING FROM HER IV ALL NIGHT. DRESSING INTACT AND NO SIGNS OF LEAKING. PT DID HAVE GOOD URINE OUTPUT WITH A PURWICK. NOTED THE URINE CLEARING FROM LIGHT PINK TO YELLOW OVER NIGHT. PT CALL LIGHT ACCESSIBLE. ABLE TO MAKE NEEDS KNOWN WHEN PROMPTED. REGULAR INTERVAL ROUNDING AND CARE ONGOING.
[2025-06-26 07:59] VITALS: BP 127/81
[2025-06-26 09:47] VITALS: BP 145/74
[2025-06-26 10:48] LABS: BASOPHILS ABSOLUTE AUTO 0.06 K/mm3 (0.00-0.23); BASOPHILS PERCENT AUTO 1 % (0-2); EOSINOPHILS ABSOLUTE AUTO 0.47 K/mm3 (0.00-0.68); EOSINOPHILS PERCENT AUTO 5 % (0-6); Hematocrit 35.8 % (33.0-51.0); Hemoglobin 11.9 g/dL (11.5-16.0); IMMATURE GRAN ABSOLUTE AUTO 0.09 K/mm3 (0.00-0.10); IMMATURE GRAN PERCENT AUTO 1 % (0-1); LYMPHOCYTES ABSOLUTE AUTO 1.25 K/mm3 (0.84-5.20); LYMPHOCYTES PERCENT AUTO 12 % (21-46); MONOCYTES ABSOLUTE AUTO 1.03 K/mm3 (0.16-1.47); MONOCYTES PERCENT AUTO 10 % (4-13); Mean Corpuscular HGB Conc 33.2 g/dL (31.5-36.5); Mean Corpuscular Volume 93 fL (80-100); NEUTROPHILS ABSOLUTE AUTO 7.20 K/mm3 (1.96-9.15); NEUTROPHILS PERCENT AUTO 71 % (41-73); NRBC ABSOLUTE 0.00 K/mm3 (0.00-0.02); NRBC Auto 0.0 /100 WBC (0.0-0.2); Platelet Count 210 K/mm3 (150-400); RDW Coefficient Variation 15.2 % (11.7-14.2); RDW Standard Deviation 52.3 fL (35.1-46.3)
[2025-06-26 10:56] LABS: Anion Gap 8.0 mmol/L (3-11); Blood Urea Nitrogen 15.0 mg/dL (8-24); CO2, Blood 26.0 mmol/L (21-32); Calcium, Blood 9.0 mg/dL (8.5-10.1); Chloride, Blood 105.0 mmol/L (98-108); Creatinine, Blood 0.6 mg/dL (0.40-1.00); Glucose, Blood 120.0 mg/dL (70-99); Potassium, Blood 3.7 mmol/L (3.5-5.5); Sodium, Blood 135.0 mmol/L (136-145)
[2025-06-26] MEDS ORDERED: BUPRENORPHINE1 EAC9 TD (11:49)
[2025-06-26] MEDS ORDERED: DULO60 PO (11:57)
[2025-06-26] MEDS ORDERED: GABA600 PO (11:57)
[2025-06-26] MEDS ORDERED: CEFP200 PO (12:08)
[2025-06-26] MEDS ORDERED: VISBIOME 112.51 EACH PO (12:08)
--- NOTE | 2025-06-26 12:52 | NUR ---
DISCHARGE NOTE- PT WAS PROVIDED WITH VERBAL AND WRITTEN DISCHARGE INSTRUCTIONS AND ACKNOWLEDGED UNDERSTANDING OF THEM, SHE WAS TRANSFERED TO THE TRANSPORT WHEELCHAIR BY THE ROLL OR TAPE EDGE MACHINE OPERATOR. PT IS BEING TRANSPORTED HOME VIA WC BY TRANSPORT COMPANY, [employer] [facility] CALLED IN TO PHARMACY. PT SON AWARE OF DC AND WILL MEET HER AT HOME TO ASSIST IN UNLOADING.
[2025-06-27] MEDS ORDERED: DULoxetine HCL 60 MG Capsule DR PO SCH (09:00)
== END 2025-06-26 12:35 | disposition home health service (06) | DRG 871 ==
LOC: ER 13:31 → MEDS 13:32 → EDPENDDIS 06-26 11:15 → ENPENDDIS 06-26 11:15 → MEDS 06-26 12:35
PROVIDERS: Student in an Organized Health Care Education/Training Program; ADMIT Internal Medicine
DX: A41.59 Other Gram-negative sepsis (principal); G92.8 Other toxic encephalopathy; Q78.0 Osteogenesis imperfecta; N39.0 Urinary tract infection, site not specified; E87.20 Acidosis, unspecified; R65.20 Severe sepsis without septic shock; G89.4 Chronic pain syndrome; I25.10 Atherosclerotic heart disease of native coronary artery without angina pectoris; E03.9 Hypothyroidism, unspecified; K21.9 Gastro-esophageal reflux disease without esophagitis; E87.70 Fluid overload, unspecified; Z90.49 Acquired absence of other specified parts of digestive tract; Z95.5 Presence of coronary angioplasty implant and graft; Z87.891 Personal history of nicotine dependence; Z88.8 Allergy status to other drugs, medicaments and biological substances; Z88.1 Allergy status to other antibiotic agents; Z79.899 Other long term (current) drug therapy; Z79.82 Long term (current) use of aspirin; Z79.890 Hormone replacement therapy
CPT/HCPCS: 36415; 51701; 71045; 71046; 80048; 80053; 81001; 83605; 83880; 84443; 85025; 87040; 87077; 87086; 87186; 87637; 93306; 96374; 96375; 99285-25; A9270; G0378; J0696; J1650; J2405; J7030; J7040; J7050; J7120